=== PATIENT | female | born 1990 | race Caucasian/White ===

== ENCOUNTER 2019-01-01 23:29 | Emergency (ER) | payer MEDICAID ==
[2019-01-02] MEDS ORDERED: NS 1,000 ML IV ONE (00:16)
[2019-01-02 00:36] LABS: PLATELET COUNT 102 10^3/uL (150-400)
[2019-01-02] MEDS ORDERED: ONDANSETRON 4 MG/2 ML VIAL IVP ONE (00:38)
[2019-01-02] MEDS ORDERED: fentaNYL 100 MCG/2 ML INJ IVP ONE ×2 (00:40→02:22)
--- NOTE | 2019-01-02 00:59 | EDPHY ---
H & P Stated Complaint: abd pain with hx of liver disease Time Seen by Provider: 01/01/19 23:50 HPI/ROS: HPI The patient presents with nausea, vomiting, right upper quadrant abdominal pain which has been present for the last 2 days. Symptoms started slowly and have gotten progressively worse. The patient is able to tolerate some fluid as well as medication and did take Tylenol earlier today. She describes the pain as a cramping sensation in her upper abdomen. It is moderate in severity. It feels similar to when she has had cholangitis. 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 She has cirrhosis because of this. She was admitted to the hospital in October of 2018 for cholangitis. She had a positive home test 1 week ago. REVIEW OF SYSTEMS 10 systems were reviewed and negative with the exception of the elements mentioned in the history of present illness. 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 resulting in atrial fibrillation Soc Hx: Lives in [place], visiting a friend in [place], prior history of IV drug use, prior methamphetamine use PHYSICAL General Appearance: Alert, no distress Eyes: Pupils equal and round no pallor or injection ENT, Mouth: Mucous membranes moist Respiratory: There are no retractions, lungs are clear to auscultation Cardiovascular: Regular rate and rhythm Gastrointestinal: Abdomen is soft and tender in the right upper quadrant without rebound or guarding, no masses, bowel sounds normal Neurological: A&O, moves all extremities Skin: Warm and dry, no rashes Musculoskeletal: Neck is supple non tender Extremities: symmetrical, full range of motion Psychiatric: Patient is oriented X 3, there is no agitation Source: Patient, Old records Exam Limitations: No limitations - Personal History LMP (Females 10-55): Over 28 Days Ago Current Tetanus/Diphtheria Vaccine: Yes Current Tetanus Diphtheria and Acellular Pertussis (TDAP): Yes - Medical/Surgical History Hx Asthma: No Hx Chronic Respiratory Disease: No Hx Diabetes: No Hx Cardiac Disease: Yes Hx Renal Disease: No Hx Cirrhosis: Yes Hx Alcoholism: No Hx HIV/AIDS: No Hx Splenectomy or Spleen Trauma: No Other PMH: biliary atresia. gall bladder out. liver disease. endocarditis. kasai procedure as - Social History Smoking Status: Current every day smoker Constitutional: Initial Vital Signs Temperature (C) 36.7 C 01/01/19 23:37 Heart Rate 83 01/01/19 23:37 Respiratory Rate 18 01/01/19 23:37 Blood Pressure 119/87 H 01/01/19 23:37 O2 Sat (%) 96 01/01/19 23:37 O2 Delivery Mode Room Air Allergies/Adverse Reactions: ciprofloxacin [From Cipro] Allergy (Verified 01/01/19 23:35) morphine Allergy (Verified 01/01/19 23:35) Home Medications: Medication Instructions Recorded Abilify 01/01/19 LACTULOSE 01/01/19 Metoprolol Tartrate 01/01/19 01/01/19 Ursodiol 01/01/19 Medical Decision Making - Diagnostics Imaging Results: Ultrasound right upper quadrant demonstrates cirrhosis, no ascites, no biliary duct dilatation, interpreted by direct Radiology. Imaging: I viewed and interpreted images myself Differential Diagnosis: 28-year-old female with history of primary biliary atresia, cirrhosis, endocarditis presents from home with abdominal pain with nausea and vomiting. She believes she is based on a positive test at home. Differential diagnosis includes cholagnitis, with hyperemesis, less likely appendicitis. Patient given IV fluids and fentanyl for pain. She had labs checked which did reveal elevated bilirubin and mild transaminitis. I reviewed her records from October when she was admitted for concern for cholangitis, cultures were negative at the time. Her liver tests currently are on par with levels at discharge. She is not . She does not have a leukocytosis. She had a right upper quadrant ultrasound which was unremarkable showing no ascites or signs of cholangitis. She lives in [place] and thus was allowed to rest in the emergency department for several hours. After about 5 hr here, I rechecked her and her pain has improved significantly from her presentation. I have explained to her that she could possibly have early cholangitis, however without a fever or white count, I do not think she requires admission. I have given her strict return precautions. She will be discharged home. - Data Points Laboratory Results: Laboratory Results 01/02/19 00:25 01/02/19 00:25 01/02/19 01/02/19 01/02/19 00:47 00:25 00:25 WBC 8.07 10^3/uL 10^3/uL (3.80-9.50) RBC 4.65 10^6/uL 10^6/uL (4.18-5.33) Hgb 15.1 g/dL g/dL (12.6-16.3) Hct 43.4 % % (38.0-47.0) MCV 93.3 fL fL (81.5-99.8) MCH 32.5 pg pg (27.9-34.1) MCHC 34.8 g/dL g/dL (32.4-36.7) RDW 13.9 % % (11.5-15.2) Plt Count 102 10^3/uL L 10^3/uL (150-400) MPV 10.7 fL fL (8.7-11.7) Neut % (Auto) 69.1 % % (39.3-74.2) Lymph % (Auto) 21.8 % % (15.0-45.0) [place] % (Auto) 7.3 % % (4.5-13.0) Eos % (Auto) 1.1 % % (0.6-7.6) Baso % (Auto) 0.5 % % (0.3-1.7) Nucleat RBC Rel Count 0.0 % % (0.0-0.2) Absolute Neuts (auto) 5.57 10^3/uL 10^3/uL (1.70-6.50) Absolute Lymphs (auto) 1.76 10^3/uL 10^3/uL (1.00-3.00) Absolute Monos (auto) 0.59 10^3/uL 10^3/uL (0.30-0.80) Absolute Eos (auto) 0.09 10^3/uL 10^3/uL (0.03-0.40) Absolute Basos (auto) 0.04 10^3/uL 10^3/uL (0.02-0.10) Absolute Nucleated RBC 0.00 10^3/uL 10^3/uL (0-0.01) Immature Gran % 0.2 % % (0.0-1.1) Immature Gran # 0.02 10^3/uL 10^3/uL (0.00-0.10) Sodium 142 mEq/L mEq/L (135-145) Potassium 3.6 mEq/L mEq/L (3.5-5.2) Chloride 114 mEq/L H mEq/L (97-110) Carbon Dioxide 19 mEq/l L mEq/l (22-31) Anion Gap 9 mEq/L mEq/L (6-14) BUN 11 mg/dL mg/dL (7-23) Creatinine 0.5 mg/dL L mg/dL (0.6-1.0) Estimated GFR > 60 Glucose 85 mg/dL mg/dL (70-100) Calcium 8.8 mg/dL mg/dL (8.5-10.4) Total Bilirubin 3.1 mg/dL H mg/dL (0.1-1.4) Conjugated Bilirubin 0.5 mg/dL mg/dL (0.0-0.5) Unconjugated Bilirubin 2.7 mg/dL H mg/dL (0.0-1.1) AST 77 IU/L H IU/L (14-46) ALT 67 IU/L H IU/L (9-52) Alkaline Phosphatase 171 IU/L H IU/L (38-126) Total Protein 6.5 g/dL g/dL (6.3-8.2) Albumin 3.4 g/dL L g/dL (3.5-5.0) Beta HCG, Quant < 2.39 mIU/mL mIU/mL (0.00-4.83) Urine Color YELLOW Urine Appearance CLEAR Urine pH 7.0 (5.0-7.5) Ur Specific [place] 1.018 (1.002-1.030) Urine Protein NEGATIVE (NEGATIVE) Urine Ketones TRACE H (NEGATIVE) Urine Blood NEGATIVE (NEGATIVE) Urine Nitrate NEGATIVE (NEGATIVE) Urine Bilirubin NEGATIVE (NEGATIVE) Urine Urobilinogen 4.0 EU H EU (0.2-1.0) Ur Leukocyte Esterase NEGATIVE (NEGATIVE) Urine Glucose NEGATIVE (NEGATIVE) Urine Opiates Screen NEGATIVE (NEGATIVE) Urine Barbiturates NEGATIVE (NEGATIVE) Ur Phencyclidine Scrn NEGATIVE (NEGATIVE) Ur Amphetamine Screen NEGATIVE (NEGATIVE) U Benzodiazepines Scrn NEGATIVE (NEGATIVE) Urine Cocaine Screen NEGATIVE (NEGATIVE) U Marijuana (THC) Screen NON-NEGATIVE H (NEGATIVE) Medications Given: Discontinued Medications Fentanyl (Sublimaze) 50 mcg IVP EDNOW ONE Stop: 01/02/19 00:41 Last Admin: 01/02/19 00:49 Dose: 50 mcg Fentanyl (Sublimaze) 50 mcg IVP EDNOW ONE Stop: 01/02/19 02:23 Last Admin: 01/02/19 02:27 Dose: 50 mcg Sodium Chloride (Ns) 1,000 mls @ 0 mls/hr IV EDNOW ONE; Wide Open PRN Reason: Protocol Stop: 01/02/19 00:17 Last Admin: 01/02/19 00:28 Dose: 1,000 mls Ondansetron HCl (Zofran) 4 mg IVP EDNOW ONE Stop: 01/02/19 00:39 Last Admin: 01/02/19 00:49 Dose: 4 mg Departure - Departure Disposition: Home, Routine, Self-Care Clinical Impression: Right upper quadrant abdominal pain, History of biliary atresia Nausea & vomiting Qualifiers: Vomiting type: unspecified Vomiting Intractability: non-intractable Qualified Code(s): R11.2 - Nausea with vomiting, unspecified Condition: Good Instructions: Cirrhosis (ED) Additional Instructions: Please return to the emergency department if your worse in any way. Referrals: ASHISH CHAIREZ [Other] - As per Instructions
[2019-01-02 05:42] VITALS: BP 96/55
== END 2019-01-02 06:31 | disposition home or self-care (01) ==
DX: R10.11 Right upper quadrant pain (principal); R11.2 Nausea with vomiting, unspecified; Z87.19 Personal history of other diseases of the digestive system
CPT/HCPCS: 80305; 96374; J2405; J3010